=== PATIENT | female | born 1980 | race Two or more races ===

== ENCOUNTER 2017-04-02 16:19 | Emergency (ER) | payer BC ==
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
== END 2017-04-02 18:30 | disposition home or self-care (01) ==
LOC: ER 16:19
DX: I83.91 Asymptomatic varicose veins of right lower extremity (principal)